=== PATIENT | female | born 1960 | race Caucasian/White ===

== ENCOUNTER 2018-12-16 11:40 | Inpatient (IN) | payer MEDICARE, MEDICAID, SELFPAY ==
[2018-12-16] VITALS (12 sets, daily range): BP systolic 85–107; BP diastolic 51–74; PULSE 76–110; RESP 16–18; TEMP 36.4–37.3; O2SAT 95–99; BMI 21.2
--- NOTE | 2018-12-16 08:30 | HP.PCM_ITS ---
Problem List (1) Mantle cell lymphoma Status: Acute Qualifiers: Lymphoma site: multiple regions Qualified Code(s): C83.18 - Mantle cell lymphoma, lymph nodes of multiple sites (2) Anemia Status: Acute Qualifiers: Other causes of anemia: antineoplastic chemotherapy History of Present Illness Date of Admission: 12/16/18 Chief Complaint: Induction chemotherapy - cycle #2 R- HiDAC The patient is a 58 year old F history of depression fibromyalgia who presented with generalized adenopathy, and weight loss with increased fatigue earlier this summer. She had a bilateral mammogram in August 2018 which showed suspicious lesion in her breast and axillary adenopathy. He had a biopsy of the right axillary lymph node on 10/30/2018 which show mantle cell lymphoma. Subsequent staging evaluation with PET scan and bone marrow biopsy showed diffuse disease involving the bone marrow as well. She had her first cycle induction chemotherapy 3 weeks ago with R-CHOP. Patient complained of several days of nausea vomiting with increased alopecia but no chest pain or shortness of breath. She denied cough, stomatitis or diarrhea. No increased neuropathy. She denied any fever chills night sweats at this time. She has chronic arthritic pain of her hip along with fibromyalgia pain throughout. She also had a EGD evaluation prior to chemotherapy which showed no significant pathology. Past Medical History Allergies morphine Allergy (Verified 12/16/18 08:21) Hives Home Medications: Ambulatory Orders Medication Instructions Recorded Allopurinol 300 mg PO DAILY 12/16/18 Buspirone HCl 7.5 mg PO BID 12/16/18 Duloxetine Hcl [Cymbalta] 60 mg PO DAILY 12/16/18 Oxycodone HCl/Acetaminophen 1 tab PO Q4H PRN PRN 12/16/18 [Percocet 5/325] Topiramate [Topamax] 100 mg PO BID 12/16/18 proMETHazine tablet [Phenergan 50 mg PO Q6H PRN PRN 12/16/18 tablet] traZODone [Desyrel] 100 mg PO QHS 12/16/18 Surgical History: no surgical history Psychiatric History: No pertinent psych hx [employer]ER[employer]ER History: No pertinent [employer]ERGROUND [employer]IT INST[employer]ER history Lives: Spouse/ Significant Other Smoking Status: Current every day smoker Alcohol: None Drugs: None Review of Systems Constitutional: Reports: Weight Change Musculoskeletal: Reports: Joint stiffness Skin: Reports: Dryness Psychiatric: Reports: Depression Hematologic/ Lymphatic: Reports: Adenopathy, Anemia VTE Information - Inpt Only VTE Present on Admission: No VTE Pharm Prophylaxis ordered?: Yes Patient Problems: Active and Suspected Problems Mantle cell lymphoma (Acute) Anemia (Acute) - Physical Exam Vitals/I&O's: Weight: 108 lb 11.006 oz Body Mass Index (BMI) 21.2 General: Alert, Oriented x3, Cooperative, No apparent distress HEENT: Atraumatic, PERRLA, EOMI, Normocephalic Oral: Moist Mucosa, No Gingival or Mucosal Lesions/ Ulcerations Neck: Supple, Trachea Midline, Thyroid Normal Size and Texture Lungs: Clear to auscultation, Normal air movement, No rhonchi, No wheeze, No rales Cardiovascular: Regular rate, Regular Rhythm, Normal S1, Normal S2, No murmurs Abdomen: Bowel Sounds Present, Soft, Non Tender, Non-Distended, No Hepato- splenomegaly Extremities: No clubbing, No cyanosis, No edema Skin: No rashes Musculoskeletal: No Tenderness to Palpation of Joints or Extremities Lymphatic: Cervical Adenopathy, Inguinal Adenopathy, Supraclavicular Adenopathy, - - Axillary adenopathy Neurological: Cranial nerves II-XII grossly intact, Deep Tendon Reflexes 2+/4 and Symmetrical, Neuro grossly intact, Motor Exam 5/5 strength throughout Psych/Mental Status: Normal Affect Current Medications Acetaminophen (Tylenol) 650 mg PO Q6H PRN PRN PRN Reason: Pain or Fever Enoxaparin Sodium (Lovenox) 40 mg SC DAILY ADITHYA Zolpidem Tartrate (Ambien (Generic)) 5 mg PO QHS PRN PRN PRN Reason: INSOMNIA Assessment/Plan All Active Problems Mantle cell lymphoma (Acute) Anemia (Acute) IMPRESSION: 58-year-old female with newly diagnosed stage IVb mantle cell lymphoma; poor risk feature with high risk IPI index (4) -No evidence of tumor lysis with first cycle of chemotherapy. -Patient is eligible for autologous bone marrow transplant after completing induction chemotherapy. PLAN: -Proceed with cycle 2 of NORDIC regimen: [id number] cytarabine today & tomorrow -Regular diet -Allopurinol 300mg once daily and start hydration NSS IV at 125cc/hr -Monitor BMP, phosphorus & uric acid daily -Strict I / O and weight daily. -Dietary consult -Dexamethasone eyedrops 4 x daily -Discharge home after chemotherapy on if stable, and return for Neulasta injection on Saturday as an outpatient. -Repeat CT scan chest abdomen pelvis after her third cycle of chemotherapy. -Indications and risks of chemotherapy discussed with patient and she agreed to proceed with treatment today. cc: Dr. Margarita Yarbrough, Dr. Sabrian Bee Code Visit Inpatient E&M: 39141 Init Hosp L3
[2018-12-16] MEDS: 0.9% Normal Saline 1,000 ML 125 ML IV ×2 (09:31→17:32)
[2018-12-16 09:37] LABS: Anion Gap 8 (5-15); BUN 14 mg/dL (7-18); BUN/Creat Ratio 15.1 RATIO (10-20); Calcium,Total 8.6 mg/dL (8.5-10.1); Chloride 107 mmol/L (98-107); Creatinine, Serum 0.93 mg/dL (0.55-1.02); EST Glomerular Filtration Rate 66 mL/min (>60); Est Glom Filt Rate - Afr Amer 80 mL/min (>60); Estimated Creatinine Clearance 46.78 ml/min; Glucose 121 mg/dL (74-106); Phosphorus 3.8 mg/dL (2.5-4.9); Potassium 3.7 mmol/L (3.5-5.1); Sodium Level 139 mmol/L (136-145); Uric Acid 2.2 mg/dL (2.6-6.0)
[2018-12-16] MEDS: DiphenhydrAMINE 50 MG/ML Syringe IV (09:40)
[2018-12-16] MEDS: Acetaminophen 325 MG Tablet 650 MG PO (09:40)
[2018-12-16] MEDS: 0.9% Saline Lock 10 ML Syringe IV ×2 (09:41→17:31)
--- NOTE | 2018-12-16 09:45 | NURSING ---
notified Infusion Center that pre meds were given. Infusion center states they will be over in half an hour to start chemo.
--- NOTE | 2018-12-16 10:28 | NURSING ---
verified chemo medication, Rituxan, with Mariya Sutton RN.
[2018-12-16] MEDS: Ondansetron 8 MG Tablet PO (11:58)
[2018-12-16] MEDS: busPIRone 5 MG Tablet 7.5 MG PO ×2 (14:58→22:10)
[2018-12-16] MEDS: Pantoprazole Sodium 40 MG Tablet PO (14:58)
[2018-12-16] MEDS: Topiramate 100 MG Tablet PO ×2 (14:58→22:11)
[2018-12-16] MEDS: Enoxaparin 40 MG/0.4 ML Syringe SC (14:59)
[2018-12-16] MEDS: DULoxetine Hcl 60 MG Capsule PO (14:59)
[2018-12-16] MEDS: Acyclovir 200 MG Capsule 400 MG PO ×2 (14:59→22:10)
[2018-12-16 16:28] LABS: Anion Gap 5 (5-15); BUN 15 mg/dL (7-18); BUN/Creat Ratio 16.6 RATIO (10-20); Calcium,Total 8.1 mg/dL (8.5-10.1); Chloride 112 mmol/L (98-107); EST Glomerular Filtration Rate 68 mL/min (>60); Est Glom Filt Rate - Afr Amer 82 mL/min (>60); Estimated Creatinine Clearance 48.34 ml/min; Glucose 126 mg/dL (74-106); Potassium 3.7 mmol/L (3.5-5.1); Sodium Level 144 mmol/L (136-145)
[2018-12-16] MEDS: oxyCODONE 5 MG Tablet PO ×2 (18:50→23:22)
--- NOTE | 2018-12-16 20:20 | NURSING ---
Chemotherapy checked by 2 nurses, by Sheron RUBIO and myself, Lana Winchester
--- NOTE | 2018-12-16 20:33 | NURSING ---
Vital signs checked after cytarabine running 30 minutes. BP107/70 pulse 96,Denies dizziness, lightheadedness or any c/o's.
[2018-12-16] MEDS: traZODone 50 MG Tablet PO (23:22)
[2018-12-17] VITALS (10 sets, daily range): BP systolic 86–102; BP diastolic 52–70; PULSE 75–95; RESP 16–18; TEMP 36.7–37.1; O2SAT 94–98
[2018-12-17] MEDS: 0.9% Normal Saline 1,000 ML 125 ML IV (01:34)
[2018-12-17] MEDS: 0.9% Saline Lock 10 ML Syringe IV ×2 (04:23→06:38)
[2018-12-17 04:45] LABS: Anion Gap 5 (5-15); BUN 19 mg/dL (7-18); BUN/Creat Ratio 25.5 RATIO (10-20); Calcium,Total 8.1 mg/dL (8.5-10.1); Chloride 113 mmol/L (98-107); Creatinine, Serum 0.74 mg/dL (0.55-1.02); EST Glomerular Filtration Rate 85 mL/min (>60); Est Glom Filt Rate - Afr Amer 102 mL/min (>60); Glucose 140 mg/dL (74-106); Phosphorus 3.2 mg/dL (2.5-4.9); Potassium 4.1 mmol/L (3.5-5.1); Sodium Level 142 mmol/L (136-145); Uric Acid 2.1 mg/dL (2.6-6.0)
[2018-12-17] MEDS: oxyCODONE 5 MG Tablet PO ×3 (06:37→20:27)
[2018-12-17] MEDS: proMETHazine 25 MG/ML Syringe IV ×2 (06:38→13:26)
[2018-12-17] MEDS: DULoxetine Hcl 60 MG Capsule PO (08:20)
[2018-12-17] MEDS: busPIRone 5 MG Tablet 7.5 MG PO ×2 (08:20→23:25)
[2018-12-17] MEDS: Allopurinol 300 MG Tablet PO (08:20)
[2018-12-17] MEDS: Pantoprazole Sodium 40 MG Tablet PO (08:21)
[2018-12-17] MEDS: Enoxaparin 40 MG/0.4 ML Syringe SC (08:21)
[2018-12-17] MEDS: Acyclovir 200 MG Capsule 400 MG PO ×2 (08:22→23:25)
[2018-12-17] MEDS: Topiramate 100 MG Tablet PO ×2 (08:22→23:25)
--- NOTE | 2018-12-17 08:55 | NURSING ---
IV Cytosar, Soniya-C, verified with Taylor Alejandra RN prior to infusion.
--- NOTE | 2018-12-17 09:03 | NURSING ---
December 17 at 0850am. Chemotherapy, cytosar A 2250mg IV over 3hours was checked by Mariya Mathew RN and Taylor FIGUEREDO,RAMIRO. Dose, route and corect line was verified. Patient stated name and birthdate which was verified and bracelet and medication was scanned. Medication was begun after verifying correct patient.
[2018-12-17] MEDS: 0.9% Normal Saline 1,000 ML 75 ML IV ×2 (10:45→23:25)
--- NOTE | 2018-12-17 11:13 | CASEMGMT ---
This RN CM to room to complete CM assessment and pt is sleeping without distress at this time. Will attempt again later. SStaten RN CM
--- NOTE | 2018-12-17 13:55 | CASEMGMT ---
RAMIRO PALMA assessment: Face to Face with patient for initial transition planning/care coordination assessment. RAMIRO PALMA introduced self and role at [facility], pt voices understanding and consents to assessment at this time. Pt is sitting up in bed in no distress at this time. Pt is A/Ox4 at this time and answers all questions appropriately at this time. Care providers, pharmacy, and demographics verified. PCP: Cristal Specialists: Linnea Parada Pharmacy: [facility] Insurance: MCR A/B Prescription Benefit: MCR D Living Will/HPOA: Pt states has paperwork for LW/HPOA and plans to fill it out while here. Pt is aware that SW is available to assist with AD paperwork, voices understanding. Silke SW aware at this time, voices understanding. LNOK: Manpreet eBatty, Living Arrangements: Pt states lives with in 1 story apt attached to [place] and states no concerns at home at this time. Pt states is independent with ADL's. Transportation: Pt states she or drives and states no transportation concerns at this time. DME/HHC: Pt states has grab bars in bathroom and states no further DME or need for any at this time. Pt states no hx of HHC or SNF in the past. Pt states no concerns with going home at time of discharge. Pt states is retired. Pt states was down to about a 1/2pack cigarettes daily but plans to quit at this time. Pt states does not drink ETOH. Pt states no further questions/concerns at this time. CM to follow for any further discharge planning/needs. Advised pt to ask for CM if any further questions/concerns/needs arise, voices understanding. Pt Goal: Home Plan: Home SStaten RAMIRO PALMA
--- NOTE | 2018-12-17 14:14 | PCM.PROGNOTE ---
Patient Problems: Active and Suspected Problems Mantle cell lymphoma (Acute) Anemia (Acute) Subjective: Tolerating treatment well. No significant nausea. Pheba a little queasy this morning but that was relieved after taking anti-emetic. No pain currently. - Physical Exam Vitals/I&O's: Vital Signs Temp Pulse Resp BP Pulse Ox 98.0 F 75 16 102/61 94 12/17/18 10:10 12/17/18 10:10 12/17/18 10:10 12/17/18 10:10 12/17/18 10:10 Oxygen Delivery Method Room Air Weight: 52.9 kg Body Mass Index (BMI) 21.2 Intake and Output for Last 24 Hours 12/15/18 12/16/18 12/17/18 23:59 23:59 23:59 Intake Total 2313.58 / 2313.58 1757.92 / 1757.92 Output Total 1200 / 1200 1300 / 1300 Balance 1113.58 / 1113.58 457.92 / 457.92 General: Alert Oral: Moist Mucosa Lungs: Clear to auscultation Cardiovascular: Regular Rhythm Lymphatic: No Cervical, Supraclavicular, or Inguinal Adenopathy Laboratory Results 12/16/18 16:00: Sodium 144, Potassium 3.7, Chloride 112 H, Carbon Dioxide 27.0, Anion Gap 5, BUN 15, Creatinine 0.90, Estim Creat Clear Calc 48.34, Est GFR (MDRD) Af Amer 82, Est GFR (MDRD) Non-Af 68, BUN/Creatinine Ratio 16.6, Glucose 126 H, Calcium 8.1 L 12/17/18 04:24: Sodium 142, Potassium 4.1, Chloride 113 H, Carbon Dioxide 24.0, Anion Gap 5, BUN 19 H, Creatinine 0.74, Estim Creat Clear Calc 58.80, Est GFR (MDRD) Af Amer 102, Est GFR (MDRD) Non-Af 85, BUN/Creatinine Ratio 25.5 H, Glucose 140 H, Uric Acid 2.1 L, Calcium 8.1 L, Phosphorus 3.2 Current Medications Acetaminophen (Tylenol) 650 mg PO Q6H PRN PRN PRN Reason: Pain or Fever Acyclovir (Zovirax) 400 mg PO BID ADITHYA Last Admin: 12/17/18 08:22 Dose: 400 mg Documented by: Albuterol Sulfate (Ventolin Aerosols) 2.5 mg INHALATION Q4H PRN Allopurinol (Zyloprim) 300 mg PO DAILY@0800 [facility] Last Admin: 12/17/18 08:20 Dose: 300 mg Documented by: Buspirone HCl (Buspar) 7.5 mg PO BID [facility] Last Admin: 12/17/18 08:20 Dose: 7.5 mg Documented by: Duloxetine HCl (Cymbalta) 60 mg PO DAILY [facility] Last Admin: 12/17/18 08:20 Dose: 60 mg Documented by: Enoxaparin Sodium (Lovenox) 40 mg SC DAILY [facility] Last Admin: 12/17/18 08:21 Dose: 40 mg Documented by: Heparin Sodium (Beef Lung) () 50 units IV UD PRN PRN Reason: R Port Heparin Flush Sodium Chloride () 1,000 mls @ 75 mls/hr IV .[id number] [facility] Last Admin: 12/17/18 10:45 Dose: 75 mls/hr Documented by: Sodium Chloride () 500 mls @ 15 mls/hr IV PRN PRN PRN Reason: Blood Transfusion Sodium Chloride () 250 mls @ 15 mls/hr IV .[id number] PRN PRN Reason: Saline Flush Cytarabine 2,250 mg/ Sodium (Chloride) 272.5 mls @ 90.833 mls/hr IV Q12H [facility] Stop: 12/18/18 10:59 Last Admin: 12/17/18 08:56 Dose: 90.833 mls/hr Documented by: Dexamethasone Sodium Phosphate 10 mg/ Ondansetron HCl 8 mg/Sodium Chloride 56.5 mls @ 226 mls/hr IV X1 ONE Stop: 12/17/18 19:44 Nutritional Formula (Lactose Free) (Ensure Enlive) 120 ml PO 4X/DAY [facility] Last Admin: 12/17/18 11:17 Dose: Not Given Documented by: Ondansetron HCl (Zofran) 8 mg PO Q8H PRN PRN Reason: NAUSEA/VOMITING Last Admin: 12/16/18 11:58 Dose: 8 mg Documented by: Oxycodone HCl (Oxyir) 5 mg PO Q4H PRN PRN PRN Reason: Pain Score 6-10/10 Last Admin: 12/17/18 13:25 Dose: 5 mg Documented by: Pantoprazole Sodium (Protonix) 40 mg PO DAILY [facility] Last Admin: 12/17/18 08:21 Dose: 40 mg Documented by: Promethazine HCl (Phenergan) 25 mg IV Q6H PRN PRN Reason: NAUSEA/VOMITING Last Admin: 12/17/18 13:26 Dose: 25 mg Documented by: Sodium Chloride () 10 - 40 ml IV UD PRN PRN Reason: R Port Saline Flush Last Admin: 12/17/18 06:38 Dose: 20 ml Documented by: Sodium Chloride (0.9% Nacl (Sterile) Posiflush) 10 - 40 ml IV UD PRN PRN Reason: Port access or dressing change Sodium Chloride () 5 - 15 ml IV UD PRN PRN Reason: SALINE FLUSH Topiramate (Topamax) 100 mg PO BID [facility] Last Admin: 12/17/18 08:22 Dose: 100 mg Documented by: Trazodone HCl (Desyrel) 50 mg PO QHS PRN PRN Reason: SLEEP Last Admin: 12/16/18 23:22 Dose: 50 mg Documented by: Zolpidem Tartrate (Ambien (Generic)) 5 mg PO QHS PRN PRN PRN Reason: INSOMNIA Medical Necessity - Tobacco Use Smoking Status: Current every day smoker Assessment/Plan All Active Problems Mantle cell lymphoma (Acute) Anemia (Acute) Tolerating treatment very well. Plan: -Continue chemotherapy as ordered. -Anticipate discharge tomorrow.
[2018-12-17] MEDS: Ondansetron 8 MG Tablet PO (17:04)
[2018-12-17] MEDS: traZODone 50 MG Tablet PO (23:28)
[2018-12-18 02:45] VITALS: BP 95/73; PULSE 82; RESP 16; TEMP 36.4; O2SAT 98
[2018-12-18 03:00] VITALS: PULSE 77
[2018-12-18] MEDS: oxyCODONE 5 MG Tablet PO ×2 (03:03→09:33)
[2018-12-18] MEDS: proMETHazine 25 MG/ML Syringe IV (05:29)
[2018-12-18] MEDS: 0.9% Saline Lock 10 ML Syringe IV ×2 (05:30→11:53)
[2018-12-18 06:23] LABS: Anion Gap 7 (5-15); BUN 21 mg/dL (7-18); BUN/Creat Ratio 26.3 RATIO (10-20); Chloride 113 mmol/L (98-107); EST Glomerular Filtration Rate 78 mL/min (>60); Est Glom Filt Rate - Afr Amer 95 mL/min (>60); Estimated Creatinine Clearance 54.39 ml/min; Glucose 141 mg/dL (74-106); Phosphorus 3.8 mg/dL (2.5-4.9); Potassium 3.7 mmol/L (3.5-5.1); Sodium Level 142 mmol/L (136-145); Uric Acid 2.8 mg/dL (2.6-6.0)
[2018-12-18 07:19] VITALS: PULSE 72
--- NOTE | 2018-12-18 08:02 | DCINST_ITS ---
- Discharge Diagnoses Current Active Problems: Current Active and Chronic Problems Mantle cell lymphoma (Acute) Anemia (Acute) Reason(s) for Visit for Discharge Instructions: Chemotherapy You will use the following diet at home:: No restrictions Your food should be the consistency of: Regular Your liquids should be the consistency of: Regular/Thin Discharge Activity: Return to Normal Activity Allergies/Adverse Reactions: Allergies morphine Allergy (Verified 12/16/18 08:21) Hives Medications to take at Discharge Allopurinol 300 mg PO DAILY 12/16/18 Buspirone HCl 7.5 mg PO BID 12/16/18 Duloxetine Hcl [Cymbalta] 60 mg PO DAILY 12/16/18 Oxycodone HCl/Acetaminophen [Percocet 5-325] 1 tab PO Q4H PRN PRN 12/16/18 Topiramate [Topamax] 100 mg PO BID 12/16/18 proMETHazine tablet [Phenergan tablet] 50 mg PO Q6H PRN PRN 12/16/18 traZODone [Desyrel] 100 mg PO QHS 12/16/18 Primary Care Physician: Juany Bee MD [Primary Care Provider] - Test Results: Test results from this visit will be discussed in further detail at your follow- up appointment, if applicable.
--- NOTE | 2018-12-18 08:04 | DS.PCM_ITS ---
Discharge Date and Diagnosis - Problem List Patient Problems: Active and Suspected Problems Mantle cell lymphoma (Acute) Anemia (Acute) Date of Admission: 12/16/18 Date of Discharge: 12/18/18 - Primary Discharge Diagnosis Active and Suspected Problems Mantle cell lymphoma (Acute) Anemia (Acute) Hospital Course and Treatment Operations: None Procedures: None Summary of Care Provided: The patient is a 58 year old F admitted for a cycle of chemotherapy for mantle cell lymphoma. Patient received course of chemotherapy without acute side effect. Patient Problems: Active and Suspected Problems Mantle cell lymphoma (Acute) Anemia (Acute) - Physical Exam Vitals/I&O's: Vital Signs Temp Pulse Resp BP Pulse Ox 97.5 F L 72 16 95/73 98 12/18/18 02:45 12/18/18 07:19 12/18/18 02:45 12/18/18 02:45 12/18/18 02:45 Oxygen Delivery Method Room Air Weight: 53.5 kg Body Mass Index (BMI) 21.2 Intake and Output for Last 24 Hours 12/16/18 12/17/18 12/18/18 23:59 23:59 23:59 Intake Total 2313.58 / 2313.58 3783.17 / 3783.17 Output Total 1200 / 1200 2700 / 2700 1000 / 1000 Balance 1113.58 / 1113.58 1083.17 / 1083.17 -1000 / -1000 General: Alert Oral: Moist Mucosa Lungs: Clear to auscultation Cardiovascular: Regular Rhythm Lymphatic: No Cervical, Supraclavicular, or Inguinal Adenopathy Laboratory Results 12/18/18 05:20: Sodium 142, Potassium 3.7, Chloride 113 H, Carbon Dioxide 22.0, Anion Gap 7, BUN 21 H, Creatinine 0.80, Estim Creat Clear Calc 54.39, Est GFR (MDRD) Af Amer 95, Est GFR (MDRD) Non-Af 78, BUN/Creatinine Ratio 26.3 H, Glucose 141 H, Uric Acid 2.8, Calcium 8.0 L, Phosphorus 3.8 Current Medications Acetaminophen (Tylenol) 650 mg PO Q6H PRN PRN PRN Reason: Pain or Fever Acyclovir (Zovirax) 400 mg PO BID ADITHYA Last Admin: 12/17/18 23:25 Dose: 400 mg Documented by: Albuterol Sulfate (Ventolin Aerosols) 2.5 mg INHALATION Q4H PRN Allopurinol (Zyloprim) 300 mg PO DAILY@0800 [facility] Last Admin: 12/17/18 08:20 Dose: 300 mg Documented by: Buspirone HCl (Buspar) 7.5 mg PO BID [facility] Last Admin: 12/17/18 23:25 Dose: 7.5 mg Documented by: Duloxetine HCl (Cymbalta) 60 mg PO DAILY [facility] Last Admin: 12/17/18 08:20 Dose: 60 mg Documented by: Enoxaparin Sodium (Lovenox) 40 mg SC DAILY [facility] Last Admin: 12/17/18 08:21 Dose: 40 mg Documented by: Heparin Sodium (Beef Lung) () 50 units IV UD PRN PRN Reason: R Port Heparin Flush Sodium Chloride () 1,000 mls @ 75 mls/hr IV .[id number] [facility] Last Infusion: 12/17/18 23:59 Dose: 75 mls/hr Documented by: Sodium Chloride () 500 mls @ 15 mls/hr IV PRN PRN PRN Reason: Blood Transfusion Sodium Chloride () 250 mls @ 15 mls/hr IV .[id number] PRN PRN Reason: Saline Flush Cytarabine 2,250 mg/ Sodium (Chloride) 272.5 mls @ 90.833 mls/hr IV Q12H [facility] Stop: 12/18/18 10:59 Last Infusion: 12/17/18 23:54 Dose: Infused Documented by: Nutritional Formula (Lactose Free) (Ensure Enlive) 120 ml PO 4X/DAY [facility] Last Admin: 12/17/18 23:25 Dose: 120 ml Documented by: Ondansetron HCl (Zofran) 8 mg PO Q8H PRN PRN Reason: NAUSEA/VOMITING Last Admin: 12/17/18 17:04 Dose: 8 mg Documented by: Oxycodone HCl (Oxyir) 5 mg PO Q4H PRN PRN PRN Reason: Pain Score 6-10/10 Last Admin: 12/18/18 03:03 Dose: 5 mg Documented by: Pantoprazole Sodium (Protonix) 40 mg PO DAILY [facility] Last Admin: 12/17/18 08:21 Dose: 40 mg Documented by: Promethazine HCl (Phenergan) 25 mg IV Q6H PRN PRN Reason: NAUSEA/VOMITING Last Admin: 12/18/18 05:29 Dose: 25 mg Documented by: Sodium Chloride () 10 - 40 ml IV UD PRN PRN Reason: R Port Saline Flush Last Admin: 12/18/18 05:30 Dose: 30 ml Documented by: Sodium Chloride (0.9% Nacl (Sterile) Posiflush) 10 - 40 ml IV UD PRN PRN Reason: Port access or dressing change Sodium Chloride () 5 - 15 ml IV UD PRN PRN Reason: SALINE FLUSH Topiramate (Topamax) 100 mg PO BID ADITHYA Last Admin: 12/17/18 23:25 Dose: 100 mg Documented by: Trazodone HCl (Desyrel) 50 mg PO QHS PRN PRN Reason: SLEEP Last Admin: 12/17/18 23:28 Dose: 50 mg Documented by: Zolpidem Tartrate (Ambien (Generic)) 5 mg PO QHS PRN PRN PRN Reason: INSOMNIA Discharge Activity: Return to Normal Activity Home Medications: Medications to take at Discharge Allopurinol 300 mg PO DAILY 12/16/18 Buspirone HCl 7.5 mg PO BID 12/16/18 Duloxetine Hcl [Cymbalta] 60 mg PO DAILY 12/16/18 Oxycodone HCl/Acetaminophen [Percocet 5-325] 1 tab PO Q4H PRN PRN 12/16/18 Topiramate [Topamax] 100 mg PO BID 12/16/18 proMETHazine tablet [Phenergan tablet] 50 mg PO Q6H PRN PRN 12/16/18 traZODone [Desyrel] 100 mg PO QHS 12/16/18 Primary Care Physician: Juany Bee MD [Primary Care Provider] - Medical Necessity - Tobacco Use Smoking Status: Current every day smoker Meaningful Use Info Meaningful Use Diagnoses (Choose all that apply): None applicable
[2018-12-18 08:40] VITALS: BP 89/58; PULSE 72; RESP 16; TEMP 36.8; O2SAT 96
--- NOTE | 2018-12-18 09:19 | PHA.DC.MR ---
Pharmacy Service has performed discharge medication reconciliation for this patient. Home Medications Allopurinol 300 mg PO DAILY 12/16/18 Buspirone HCl 7.5 mg PO BID 12/16/18 Duloxetine Hcl [Cymbalta] 60 mg PO DAILY 12/16/18 Oxycodone HCl/Acetaminophen [Percocet 5-325] 1 tab PO Q4H PRN PRN 12/16/18 Topiramate [Topamax] 100 mg PO BID 12/16/18 proMETHazine tablet [Phenergan tablet] 50 mg PO Q6H PRN PRN 12/16/18 traZODone [Desyrel] 100 mg PO QHS 12/16/18 The patient's discharge medication list was reviewed for discrepancies and discrepancies were resolved.
[2018-12-18] MEDS: DULoxetine Hcl 60 MG Capsule PO (09:33)
[2018-12-18] MEDS: Acyclovir 200 MG Capsule 400 MG PO (09:34)
[2018-12-18] MEDS: busPIRone 5 MG Tablet 7.5 MG PO (09:34)
[2018-12-18] MEDS: Allopurinol 300 MG Tablet PO (09:34)
[2018-12-18] MEDS: Pantoprazole Sodium 40 MG Tablet PO (09:38)
[2018-12-18] MEDS: Topiramate 100 MG Tablet PO (09:38)
[2018-12-18] MEDS: Enoxaparin 40 MG/0.4 ML Syringe SC (09:38)
[2018-12-18 09:42] VITALS: BP 100/67; PULSE 74; RESP 18; TEMP 36.8; O2SAT 96
== END 2018-12-18 12:10 | disposition home or self-care (01) | DRG 847 ==
PROVIDERS: Admitting Provider Internal Medicine Hematology & Oncology; Family Provider Internal Medicine; PCP Internal Medicine; Referring Provider Internal Medicine Hematology & Oncology; Visit Provider Internal Medicine Hematology & Oncology
DX: Z51.11 Encounter for antineoplastic chemotherapy (principal); C83.10 Mantle cell lymphoma, unspecified site; M79.7 Fibromyalgia; D64.9 Anemia, unspecified
CPT/HCPCS: 80048; 84100; 84550; 97802; 99406; J7030; J7050; J9312; A4216; J2405; J3490; J9100

== ENCOUNTER 2019-01-27 15:30 | Inpatient (IN) | payer MEDICARE, MEDICAID, SELFPAY ==
[2018-12-16 08:17] VITALS: BMI 21.2
--- NOTE | 2019-01-27 10:12 | PCM.HP.BLA ---
Problem List (1) Mantle cell lymphoma Status: Acute Qualifiers: History and Physical Date of Admission: 01/27/19 Diagnosis: 1) Mantle cell lymphoma. ? HPI:?The patient is a 58-year-old female with a past medical history significant for fibromyalgia?and depression. ? Presented?with bilateral axillary adenopathy. Patient had?not been feeling well for the last 3 months prior to presentation?with progressive fatigue and weight loss. She had?recurrent colds and sinus infection and had?felt cervical adenopathy since earlier this year. They were?not painful and the lymph node did not?wax and wane in size initially. ? She also has a?family history of breast cancer her mother from metastatic breast cancer as well as Sister with breast cancer. She had bilateral mammogram on September 17, 2018 which showed?suspicious lesions?in the breasts.?A?breast breast?biopsy was recommended.? ? She also have MRI scan of her breasts.? ? US?guided needle biopsy of the right axilla or right breast mass on?10/30/2018.? ? Pathology: Right breast axilla, needle biopsy - Mantle cell lymphoma (see comment). COMMENT The histologic sections show small core fragments of fibrofatty tissue and scant fragments of lymphoid tissue. The lymphoid fragments are composed predominantly of small lymphocytes with somewhat irregular, angulated nuclei. Scattered large cells and scattered histiocytes are also present. Flow cytometric studies show a CD5 positive B-cell population with monotypic kappa light chain expression. Immunohistochemical stains were also performed to further characterize the atypical B-cells. Immunostains?show numerous CD20 positive cells that co-express CD5, BCL-2 and cyclin-D1. Scattered CD3 positive cells are also present. The B-cells are negative for CD10 and BCL-6. A CD21 stain is negative. A Ki-67 stain is positive in approximately 40% of nuclei. Together these findings demonstrate involvement by mantle cell lymphoma. ? Bone marrow biopsy 11/12/2018. BONE MARROW, CORE BIOPSY, ASPIRATE SMEAR, PERIPHERAL BLOOD: - MORPHOLOGIC FINDINGS CONSISTENT WITH EXTENSIVE INVOLVEMENT BY MANTLE CELL LYMPHOMA, BLASTOID VARIANT. - SEE COMMENT. ? EGD 11/19/2018. Patient was identified as having a normal mucosa of the duodenum and jejunum. Changes consistent with gastritis characterized by scattered mild inflammation with erosions, erythema and friability was found in the entire examined mucosa of the stomach. Biopsies were taken. Changes from nonsevere reflux esophagitis were also observed and biopsied. Biopsies were taken from the normal-appearing jejunal mucosa. ? Pathology: ? ?FINAL DIAGNOSIS 1. Jejunum, biopsy (A) - No significant diagnostic abnormality. - Morphologic features of celiac disease are not seen. - No morphologic evidence of a lymphoproliferative disorder. 2. Gastric antrum, biopsy (B) - Gastric antral mucosa with features of healing erosion and reactive gastropathy. - No morphologic evidence of H. pylori organisms or a lymphoproliferative disorder. 3. Distal esophagus, biopsy (C) - Lymphocytic esophagitis pattern of injury. - See comment. ? ? PET 11/11/2018: IMPRESSION: Extensive lymphoma with splenic and marrow involvement. ?1. ?NECK: Extensive hypermetabolic cervical lymphadenopathy. ?2. ?CHEST: Small mildly hypermetabolic right lung nodule, suspicious for a small malignant nodule. Extensive hypermetabolic mediastinal, hilar and axillary lymphadenopathy. ?3. ?ABDOMEN/PELVIS: Extensive hypermetabolic abdomen and pelvic lymphadenopathy. Splenomegaly. ?Diffuse splenic hypermetabolism, compatible with splenic involvement. Heterogeneous uptake with focus of increased uptake/hypermetabolism in the liver. ?Metastatic involvement cannot be entirely excluded. ?4. ?EXTREMITIES/SKELETON: Extensive skeletal metabolism compatible with marrow involvement. ? Current therapy: 1) R-CHOP alternating with Soniya-C (nordic regimen). ? Presents for ongoing oncologic management. ? Interim history:? Did well with cycle #3. ? Required RBC transfusion. ? Was still having significant pain across breasts and into both axillae. Has been going on for several weeks. Gabapentin did not help. ? ROS: Constitutional: Denies episodes of fever and night sweats. Normal appetite. Neuro: ?Denies LOUISE, vertigo, dizziness and imbalance. HEENT: No recent change in voice, vision or hearing. Resp: Denies cough, wheeze and hemoptysis. Denies shortness of breath at rest. Denies STAHL. CVS: Denies exertional chest pain, PND, orthopnea and LE edema. GI: Denies dysgeusia. Denies symptoms of stomatitis. Denies dysphagia and odynophagia. Denies reflux, n/v, change in bowel habits and abdominal pain. : Denies dysuria or gross hematuria. No symptoms of bladder outlet obstruction. Endo: Denies polyuria and polydipsia. Musculoskeletal:?See above. Derm: Denies rash. Denies jaundice and diffuse pruritis. Heme: Denies unusual bleeding and unexplained bruising. Psych: Normal mood. ? PHYSICAL EXAM (from OV 01/23/2019) Well appearing and in no acute distress. EYES: Sclerae are anicteric bilaterally. ENT: Oral mucosa is unremarkable. There is no sign of thrush or mucositis. ? NECK: Supple. LYMPHATIC:?All peripheral adenopathy resolved. RESPIRATORY: Inspiratory breath sounds are of normal intensity in all rodrigues. No rales, wheezes or rhonchi. CARDIOVASCULAR: Rhythm is regular. Normal intensity S1/S2. ABDOMEN: The abdomen is nondistended. Extremities: No swelling or edema. ? SKIN: No jaundice or rash. No petechiae. ? 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 No focal motor weakness. MUSCULOSKELETAL: No muscle wasting. ASSESSMENT/PLAN: (C83.18) Mantle cell lymphoma of lymph nodes of multiple regions (HCC) ?(primary encounter diagnosis) Stage IVB Assessment: -KPS is 90%. -MIPI score is 4; Ki67 40%. -No evidence of tumor lysis?with?first?and subsequent?courses?of chemotherapy. -She is tolerating chemotherapy symptomatically very well. -Complete response by exam. Plan: -Admission for cycle #4 (Soniya-c/rituximab). -Repeat CT scan of chest abdomen pelvis and PET after fourth cycle chemotherapy. ? (M79.629) Pain in axilla, unspecified laterality Assessment: -Pain not characteristic of neuropathic pain from chemotherapy. -Lymphoma in remission. Plan: -Under the care of PCP.
[2019-01-27 14:21] VITALS: BP 122/77; PULSE 84; RESP 18; TEMP 36.8; O2SAT 99
[2019-01-27 14:33] VITALS: BMI 24.3
[2019-01-27 14:44] VITALS: BMI 24.4
[2019-01-27] MEDS: Acetaminophen 325 MG Tablet 650 MG PO (14:54)
[2019-01-27] MEDS: Acetaminophen/Butalbital/Caffe 1 Tablet PO ×2 (14:54→22:56)
[2019-01-27] MEDS: 0.9% Normal Saline 1,000 ML 125 ML IV (14:54)
[2019-01-27] MEDS: DiphenhydrAMINE 50 MG/ML Syringe IV (14:54)
[2019-01-27] MEDS: 0.9% Saline Lock 10 ML Syringe IV (14:55)
[2019-01-27 16:03] LABS: Anion Gap 4 (5-15); BUN 9 mg/dL (7-18); BUN/Creat Ratio 13.4 RATIO (10-20); Calcium,Total 8.6 mg/dL (8.5-10.1); Chloride 115 mmol/L (98-107); Creatinine, Serum 0.67 mg/dL (0.55-1.02); EST Glomerular Filtration Rate 95 mL/min (>60); Est Glom Filt Rate - Afr Amer 115 mL/min (>60); Estimated Creatinine Clearance 64.94 ml/min; Glucose 86 mg/dL (74-106); LDH 164 U/L (84-246); Phosphorus 3.3 mg/dL (2.5-4.9); Potassium 3.6 mmol/L (3.5-5.1); Sodium Level 143 mmol/L (136-145); Uric Acid 2.7 mg/dL (2.6-6.0)
[2019-01-27 16:15] VITALS: BP 92/61; PULSE 72; RESP 16; TEMP 36.9; O2SAT 97
[2019-01-27 17:15] VITALS: BP 105/69; PULSE 79; RESP 16; TEMP 36.9; O2SAT 97
[2019-01-27] MEDS: prednisoLONE eye drops (5 mL) 1 DROP OPTH.BTL 2 DRP OPHTHALMIC ×2 (17:30→22:58)
--- NOTE | 2019-01-27 20:37 | NURSING ---
cytarabine hung per order. Pt A&Ox3, watching tv in bed, up to bathroom independently without difficulty. Report given to RAMIRO Goddard on the floor. No signs/symptoms of reactions/problems noted.
[2019-01-27] MEDS: traZODone 50 MG Tablet PO (22:56)
[2019-01-27] MEDS: Acyclovir 200 MG Capsule 400 MG PO (23:00)
[2019-01-27] MEDS: busPIRone 15 MG TABLET 7.5 MG PO (23:00)
[2019-01-27] MEDS: Topiramate 100 MG Tablet PO (23:02)
[2019-01-27 23:04] VITALS: BP 102/68; PULSE 89; RESP 18; TEMP 36.8; O2SAT 99
[2019-01-27] MEDS: Ondansetron 8 MG Tablet PO (23:55)
[2019-01-28 04:36] VITALS: BP 100/58; PULSE 84; RESP 18; TEMP 36.7; O2SAT 97
[2019-01-28] MEDS: 0.9% Normal Saline 1,000 ML 125 ML IV ×3 (04:39→23:57)
[2019-01-28] MEDS: 0.9% Saline Lock 10 ML Syringe IV (04:41)
[2019-01-28 05:11] LABS: Anion Gap 5 (5-15); BUN 13 mg/dL (7-18); BUN/Creat Ratio 18.1 RATIO (10-20); Calcium,Total 8.3 mg/dL (8.5-10.1); Chloride 114 mmol/L (98-107); Creatinine, Serum 0.72 mg/dL (0.55-1.02); EST Glomerular Filtration Rate 88 mL/min (>60); Est Glom Filt Rate - Afr Amer 107 mL/min (>60); Estimated Creatinine Clearance 60.43 ml/min; Glucose 116 mg/dL (74-106); LDH 159 U/L (84-246); Potassium 4.1 mmol/L (3.5-5.1); Sodium Level 142 mmol/L (136-145); Uric Acid 2.6 mg/dL (2.6-6.0)
[2019-01-28] MEDS: Acetaminophen/Butalbital/Caffe 1 Tablet PO (07:34)
[2019-01-28 08:00] VITALS: BP 103/66; PULSE 78; RESP 18; TEMP 36.8; O2SAT 100
[2019-01-28] MEDS: busPIRone 15 MG TABLET 7.5 MG PO ×2 (08:48→21:41)
[2019-01-28] MEDS: Acyclovir 200 MG Capsule 400 MG PO ×2 (08:48→21:42)
[2019-01-28] MEDS: Allopurinol 300 MG Tablet PO (08:48)
[2019-01-28] MEDS: Topiramate 100 MG Tablet PO ×2 (08:48→21:42)
[2019-01-28] MEDS: DULoxetine Hcl 60 MG Capsule PO (08:48)
[2019-01-28] MEDS: Pantoprazole Sodium 40 MG Tablet PO (08:48)
[2019-01-28] MEDS: prednisoLONE eye drops (5 mL) 1 DROP OPTH.BTL 2 DRP OPHTHALMIC ×3 (08:49→20:34)
[2019-01-28] MEDS: Enoxaparin 40 MG/0.4 ML Syringe SC (08:49)
[2019-01-28 11:15] VITALS: BP 109/65; PULSE 81; RESP 16; TEMP 36.9; O2SAT 99
[2019-01-28] MEDS: oxyCODONE 5 MG Tablet PO ×2 (14:58→21:41)
[2019-01-28] MEDS: Acetaminophen 325 MG Tablet PO (14:59)
--- NOTE | 2019-01-28 15:17 | CASEMGMT ---
RN CM BURN OUT SCARFING OPERATOR CM to room to meet with patient for initial transition planning/care coordination assessment. RAMIRO PALMA introduced self and role at [facility]. Pt voices understanding and consents to assessment at this time. Pt resting in bed in no distress at this time. Pt is A/O at this time and answers all questions appropriately. Care providers, pharmacy, and demographics verified/updated at this time. PCP: Cristal Specialists: Filomena--oncology Preferred Pharmacy: [facility] Insurance: MCR A & B. Pt states she also has IVAN. Call placed to Registration and spoke with Jane and she was made aware pt states has IVAN. She states she will look into this. Prescription Benefit: Yes, [facility] Living Will/HPOA: States does not have LW or HCPOA . Interested in more information and would like to talk with SW for help with completing paperwork. DURGA Grady, made aware. Pt made aware if she is discharged prior to SW being able to assist her, that she can make an appt with SW as an OP. Given Social Service Rac Card. Pt voices understanding. LNOK: , Manpreet Living Arrangements: Lives in an attached in-law suite to a 2-story farmhouse that was originally built for her in-laws, but they have passed, so pt and her now live in it. Pt states she is independent with personal ADL's. has been doing most of the housework such as cleaning and cooking. She states she has still been doing the laundry. is supportive. Transportation: Pt states drives self and states no transportation concerns at this time. also drives. DME: Denies using any DME and denies needs. HHC/SNF: No history of either. Denies needs for HHC. Pt wishes to return home and states has no concerns with going home at time of discharge. CM to follow for any discharge planning/needs. Pt voices no further concerns/needs at this time. Advised pt to ask for CM if any further questions/concerns/needs arise. Voices understanding. Pt discharge plan/goal: Home Plan: Home Siria CHRISTINE RN, CM
[2019-01-28 17:15] VITALS: BP 106/66; PULSE 97; RESP 18; TEMP 36.9; O2SAT 99
[2019-01-28 19:55] VITALS: BP 109/66; PULSE 85; RESP 16; TEMP 37.4; O2SAT 96
--- NOTE | 2019-01-28 20:25 | NURSING ---
MD AT BEDSIDE EVALUATING PATIENT, NO NEW ORDERS DID SPEAK WITH DR TODD AND STILL DECIDING TO HOLD CHEMO AND WILL BE IN TO EVALUATE PATIENT IN THE MORNING.
[2019-01-28] MEDS: traZODone 50 MG Tablet PO (21:46)
[2019-01-28 21:50] VITALS: BP 118/70; PULSE 87; RESP 16; TEMP 37.7; O2SAT 99
[2019-01-29] MEDS: prednisoLONE eye drops (5 mL) 1 DROP OPTH.BTL 2 DRP OPHTHALMIC (03:40)
[2019-01-29 03:50] VITALS: BP 116/67; PULSE 71; RESP 16; TEMP 36.9; O2SAT 97
[2019-01-29 04:41] LABS: Anion Gap 5 (5-15); BUN 20 mg/dL (7-18); BUN/Creat Ratio 32.2 RATIO (10-20); Chloride 113 mmol/L (98-107); Creatinine, Serum 0.62 mg/dL (0.55-1.02); EST Glomerular Filtration Rate 104 mL/min (>60); Est Glom Filt Rate - Afr Amer 126 mL/min (>60); Estimated Creatinine Clearance 70.18 ml/min; Glucose 115 mg/dL (74-106); LDH 147 U/L (84-246); Phosphorus 4.3 mg/dL (2.5-4.9); Potassium 4.4 mmol/L (3.5-5.1); Sodium Level 142 mmol/L (136-145); Uric Acid 2.8 mg/dL (2.6-6.0)
[2019-01-29] MEDS: 0.9% Normal Saline 1,000 ML 125 ML IV (07:05)
[2019-01-29 08:29] VITALS: BP 105/69; PULSE 83; RESP 15; TEMP 36.8; O2SAT 100
[2019-01-29] MEDS: oxyCODONE 5 MG Tablet PO (08:31)
[2019-01-29] MEDS: Allopurinol 300 MG Tablet PO (08:33)
[2019-01-29] MEDS: Pantoprazole Sodium 40 MG Tablet PO (08:33)
--- NOTE | 2019-01-29 08:42 | DCINST_ITS ---
You will use the following diet at home:: No restrictions Your food should be the consistency of: Regular Your liquids should be the consistency of: Regular/Thin Discharge Activity: Return to Normal Activity Call your doctor if you observe: Fever of 101 or Higher Allergies/Adverse Reactions: Allergies morphine Allergy (Verified 12/16/18 08:21) Hives Medications to take at Discharge Allopurinol 300 mg PO DAILY 12/16/18 Buspirone HCl 10 mg PO BID 12/16/18 Duloxetine Hcl [Cymbalta] 60 mg PO DAILY 12/16/18 Oxycodone HCl/Acetaminophen [Percocet 5-325] 1 tab PO DAILY PRN 12/16/18 Topiramate [Topamax] 100 mg PO BID 12/16/18 proMETHazine tablet [Phenergan tablet] 25 mg PO Q6H PRN PRN 12/16/18 traZODone [Desyrel] 100 mg PO QHS 12/16/18 Acyclovir 400 mg PO BID 01/27/19 Albuterol Sulfate [Ventolin Hfa] 2 puff IN Q4H 01/27/19 Butalbital/Aspirin/Caffeine [Fiorinal 50-325-40 mg Capsule] 1 ea PO Q8H PRN 01/27/19 Fluticasone Propionate 1 spray NARES DAILY PRN 01/27/19 Omeprazole 40 mg PO DAILY 01/27/19 Ondansetron [Zofran] 8 mg PO Q8H PRN PRN 01/27/19 Primary Care Physician: Juany Bee MD [Primary Care Provider] - Test Results: Test results from this visit will be discussed in further detail at your follow- up appointment, if applicable. Proposed Discharge Date: 01/29/19
--- NOTE | 2019-01-29 08:45 | PCM.DC.SUM ---
Discharge Date and Diagnosis Date of Admission: 01/27/19 Date of Discharge: 01/29/19 - Primary Discharge Diagnosis Mantle cell lymphoma Hospital Course and Treatment Operations: None Procedures: None Summary of Care Provided: The patient is a 58 year old F admitted for her fourth cycle (second cycle of high dose Soniya C) of chemotherapy. Patient tolerated very well but on the second night she developed supraorbital pain on the right. Neurologic exam was benign. Dose of air C was omitted. She was feeling well and was having no pain. No neurologic symptoms. He agreed to proceed with third dose of chemotherapy. Then discharged home. - Physical Exam Vitals/I&O's: Vital Signs Temp Pulse Resp BP Pulse Ox 98.2 F 83 15 105/69 100 01/29/19 08:29 01/29/19 08:29 01/29/19 08:29 01/29/19 08:29 01/29/19 08:29 Oxygen Delivery Method Room Air Weight: 56.5 kg Body Mass Index (BMI) 24.3 Intake and Output for Last 24 Hours 01/27/19 01/28/19 01/29/19 23:59 23:59 23:59 Intake Total 1684.00 / 1684.00 4137.34 / 4137.34 1085.42 / 1085.42 Balance 1684.00 / 1684.00 4137.34 / 4137.34 1085.42 / 1085.42 General: Alert, Oriented x3 HEENT: PERRLA, EOMI Lungs: Normal air movement Cardiovascular: Regular Rhythm Abdomen: Soft, Non Tender Neurological: Cranial nerves II-XII grossly intact, Deep Tendon Reflexes 2+/4 and Symmetrical, Motor Exam 5/5 strength throughout Laboratory Results 01/29/19 04:06: Sodium 142, Potassium 4.4, Chloride 113 H, Carbon Dioxide 24.0, Anion Gap 5, BUN 20 H, Creatinine 0.62, Estim Creat Clear Calc 70.18, Est GFR (MDRD) Af Amer 126, Est GFR (MDRD) Non-Af 104, BUN/Creatinine Ratio 32.2 H, Glucose 115 H, Uric Acid 2.8, Calcium 8.0 L, Phosphorus 4.3, Lactate Dehydrogenase 147 Current Medications Acetaminophen (Tylenol) 325 mg PO Q12H PRN PRN Reason: Pain Score 6-10/10 Last Admin: 01/28/19 14:59 Dose: 325 mg Documented by: Acetaminophen/Butalbital/Caffeine (Fioricet) 1 tablet PO TID PRN PRN PRN Reason: HEADACHE Last Admin: 01/28/19 07:34 Dose: 1 tablet Documented by: Acyclovir (Zovirax) 400 mg PO BID [facility] Last Admin: 01/28/19 21:42 Dose: 400 mg Documented by: Albuterol Sulfate (Ventolin Aerosols) 2.5 mg INHALATION Q4H PRN PRN PRN Reason: SOB/WHEEZING Allopurinol (Zyloprim) 300 mg PO DAILY@0800 [facility] Last Admin: 01/29/19 08:33 Dose: 300 mg Documented by: Buspirone HCl (Buspar) 7.5 mg PO BID [facility] Last Admin: 01/28/19 21:41 Dose: 7.5 mg Documented by: Duloxetine HCl (Cymbalta) 60 mg PO DAILY [facility] Last Admin: 01/28/19 08:48 Dose: 60 mg Documented by: Enoxaparin Sodium (Lovenox) 40 mg SC DAILY@1000 [facility] Last Admin: 01/28/19 08:49 Dose: 40 mg Documented by: Heparin Sodium (Beef Lung) () 50 units IV UD PRN PRN Reason: Port-a-Cath (VAD)Heparin Flush Sodium Chloride () 1,000 mls @ 125 mls/hr IV .Q8H [facility] Last Infusion: 01/29/19 08:38 Dose: 0 mls/hr Documented by: Cytarabine 3,000 mg/ Sodium (Chloride) 280 mls @ 93.333 mls/hr IV Q12H [facility] Stop: 01/29/19 10:59 Last Admin: 01/29/19 08:33 Dose: 93.3 mls/hr Documented by: Nutritional Formula (Lactose Free) (Ensure Enlive) 120 ml PO 4X/DAY [facility] Last Admin: 01/28/19 21:41 Dose: 120 ml Documented by: Oxycodone HCl (Oxyir) 5 mg PO Q12H PRN PRN Reason: Pain Score 6-10/10 Last Admin: 01/29/19 08:31 Dose: 5 mg Documented by: Pantoprazole Sodium (Protonix) 40 mg PO DAILY [facility] Last Admin: 01/29/19 08:33 Dose: 40 mg Documented by: Prednisolone Acetate (Pred Forte Eye Drops (5 Ml)) 2 drop OPHTHALMIC Q6H ADITHYA Last Admin: 01/29/19 03:40 Dose: 2 drop Documented by: Promethazine HCl (Phenergan) 25 mg IV Q6H PRN PRN Reason: NAUSEA/VOMITING Sodium Chloride () 10 - 40 ml IV UD PRN PRN Reason: Port-a-Cath (VAD) Flush Last Admin: 01/28/19 04:41 Dose: 30 ml Documented by: Sodium Chloride (0.9% Nacl (Sterile) Posiflush) 10 - 40 ml IV UD PRN PRN Reason: Port access or dressing change Topiramate (Topamax) 100 mg PO BID ADITHYA Last Admin: 01/28/19 21:42 Dose: 100 mg Documented by: Trazodone HCl (Desyrel) 50 mg PO QHS PRN PRN PRN Reason: SLEEP Last Admin: 01/28/19 21:46 Dose: 50 mg Documented by: Discharge Activity: Return to Normal Activity Call your doctor if you observe: Fever of 101 or Higher Home Medications: Medications to take at Discharge Allopurinol 300 mg PO DAILY 12/16/18 Buspirone HCl 10 mg PO BID 12/16/18 Duloxetine Hcl [Cymbalta] 60 mg PO DAILY 12/16/18 Oxycodone HCl/Acetaminophen [Percocet 5-325] 1 tab PO DAILY PRN 12/16/18 Topiramate [Topamax] 100 mg PO BID 12/16/18 proMETHazine tablet [Phenergan tablet] 25 mg PO Q6H PRN PRN 12/16/18 traZODone [Desyrel] 100 mg PO QHS 12/16/18 Acyclovir 400 mg PO BID 01/27/19 Albuterol Sulfate [Ventolin Hfa] 2 puff IN Q4H 01/27/19 Butalbital/Aspirin/Caffeine [Fiorinal 50-325-40 mg Capsule] 1 ea PO Q8H PRN 01/27/19 Fluticasone Propionate 1 spray NARES DAILY PRN 01/27/19 Omeprazole 40 mg PO DAILY 01/27/19 Ondansetron [Zofran] 8 mg PO Q8H PRN PRN 01/27/19 Primary Care Physician: Juany Bee MD [Primary Care Provider] - Medical Necessity - Tobacco Use Smoking Status: Current every day smoker - Patient not psychologically motivated to quit Meaningful Use Info Meaningful Use Diagnoses (Choose all that apply): None applicable
--- NOTE | 2019-01-29 10:06 | PHA.DC.MR ---
Pharmacy Service has performed discharge medication reconciliation for this patient. Home Medications Allopurinol 300 mg PO DAILY 12/16/18 Buspirone HCl 10 mg PO BID 12/16/18 Duloxetine Hcl [Cymbalta] 60 mg PO DAILY 12/16/18 Oxycodone HCl/Acetaminophen [Percocet 5-325] 1 tab PO DAILY PRN 12/16/18 Topiramate [Topamax] 100 mg PO BID 12/16/18 proMETHazine tablet [Phenergan tablet] 25 mg PO Q6H PRN PRN 12/16/18 traZODone [Desyrel] 100 mg PO QHS 12/16/18 Acyclovir 400 mg PO BID 01/27/19 Albuterol Sulfate [Ventolin Hfa] 2 puff IN Q4H 01/27/19 Butalbital/Aspirin/Caffeine [Fiorinal 50-325-40 mg Capsule] 1 ea PO Q8H PRN 01/27/19 Fluticasone Propionate 1 spray NARES DAILY PRN 01/27/19 Omeprazole 40 mg PO DAILY 01/27/19 Ondansetron [Zofran] 8 mg PO Q8H PRN PRN 01/27/19 The patient's discharge medication list was reviewed for discrepancies and discrepancies were resolved.
[2019-01-29 11:32] VITALS: BP 117/75; PULSE 93; RESP 14; TEMP 36.8; O2SAT 100
[2019-01-29] MEDS: 0.9% Saline Lock 10 ML Syringe IV (11:40)
== END 2019-01-29 12:13 | disposition home or self-care (01) | DRG 847 ==
PROVIDERS: Admitting Provider Internal Medicine Hematology & Oncology; Family Provider Internal Medicine; PCP Internal Medicine; Referring Provider Internal Medicine Hematology & Oncology; Visit Provider Internal Medicine Hematology & Oncology
DX: Z51.11 Encounter for antineoplastic chemotherapy (principal); C83.10 Mantle cell lymphoma, unspecified site; F17.200 Nicotine dependence, unspecified, uncomplicated; Z23 Encounter for immunization
CPT/HCPCS: 80048; 83615; 84100; 84550; 97802; 99406; G0008; J7030; J7050; J9312; 90686; A4216; J2405; J3490; J9100

== ENCOUNTER 2019-01-29 17:33 | Emergency (ER) | payer MEDICARE, MEDICAID, SELFPAY ==
[2019-01-29 17:35] VITALS: BP 127/76; PULSE 89; RESP 17; TEMP 37.1; O2SAT 100; BMI 23.8
--- NOTE | 2019-01-29 18:03 | ED.VISSUMM ---
- ER Visit Summary Date of Service: 01/29/19 Chief Complaint: Headache, nausea, vomiting History of Present Illness: The patient is a 58 F who has a headache, nausea and vomiting. This started today. She had a slight headache last night which got better. She states that she vomited 5 times this afternoon. She states it feels like her eyeball is in a vice. She has no abdominal pain with this. The patient just left the hospital today after receiving rounds of chemotherapy for mantle cell lymphoma. She had the pain last night but was evaluated by the hospitalist and had a normal neurologic exam at that time. She states she has a history of a pituitary tumor that was shrunk by pills. Physical Examination: Vital signs reviewed. HEENT exam unremarkable. Heart is regular rate and rhythm without murmurs. Lungs are clear to auscultation. Abdomen is soft and nontender. Extremities reveal no edema. Skin exam normal. Neurologic exam normal. Test Results: Laboratory studies show a hemoglobin of 8.6, potassium 3.3. CAT scan of the head reveals nothing acute Emergency Department Course and Treatment: Patient was given IV fluids and Zofran. She feels much better. I spoke with Dr. Butt and with the patient. She would like to go home. Dr. Butt is okay with this. He states he will contact the patient tomorrow to see how she is feeling. She states that she does have some nausea medicines that she can take at home. Treatment Plan: [] Disposition: Discharge Impression: Vomiting Mantle cell lymphoma on chemotherapy This note was generated with [employer] software. It may contain incorrect words, spelling, and punctuation that were not noted in review of the chart prior to signing ED Disposition - Plan for ED Patient: Referrals: Juany Bee MD [Primary Care Provider] -
--- NOTE | 2019-01-29 18:22 | CT_ITS ---
STUDY: CT BRAIN WITHOUT CONTRAST REASON FOR EXAM: Female, 58 years old. Headache, nausea and vomiting RADIATION DOSAGE (If Supplied By Facility): CTDIvol = ( 44.99 ) mGy, DLP = ( 728.62 ) mGycm TECHNIQUE: Transaxial CT imaging of the brain was performed without administration of intravenous contrast material. Individualized dose optimization techniques were used for this CT. COMPARISON: No relevant priors. FINDINGS: Normal soft tissue structures. Normal calvarium. There is a nasal bone fracture of indeterminate age. Normal size ventricles and extra-axial spaces for the patient''s age. Normal white matter tracts of the cerebral hemispheres. Normal basal ganglia and thalami. Normal brainstem. Normal cerebellum. There is no intracranial hemorrhage. There are no findings of an acute ischemic infarction. Normal visualized paranasal sinuses. CT/Brain/Head without Contrast IMPRESSION: Ms. Bone fracture of indeterminate age. There is no intracranial hemorrhage or evidence of acute infarct. No mass lesion is seen. Electronically Signed: Jose Hanna MD at 19:49 EST , Service support ,
[2019-01-29 18:32] VITALS: O2SAT 99
[2019-01-29] MEDS: 0.9% Normal Saline 1,000 ML 1000 ML IV (18:34)
[2019-01-29] MEDS: Ondansetron 4 MG/2 ML Vial IV (18:35)
[2019-01-29 18:36] VITALS: PULSE 81; RESP 16; O2SAT 100
[2019-01-29 18:51] LABS: Absolute Lymphocyte Count 0.25 X10^3/uL (0.83-4.51); Absolute Neutrophil Count 5.2 X10^3/uL (2.0-7.7); Basophil# 0.01 X10^3/uL; Basophil% 0.2 % (0-1); Eosinophil# 0.01 X10^3/uL; Eosinophils% 0.2 % (0-5); Hematocrit 25.3 % (37-47); Hemoglobin 8.6 g/dL (12.0-15.0); Lymphocyte # 0.25 X10^3/ul (4.0); Lymphocyte % 4.4 % (19-41); Mean Corpuscular Hgb 36.8 pg (27.0-32.0); Mean Corpuscular Volume 108.1 fL (81-99); Mean Platelet Vol. 9.5 fl (6.2-12.0); Monocyte# 0.19 X10^3/uL; Monocyte% 3.3 % (0-10); NRBC Flagged by Analyzer 0 % (0-5); Neutrophil # 5.21 X10^3/uL (2.7-7.7); Neutrophil % 91.5 % (47-70); POSITIVE DIFFERENTIAL YES; POSITIVE MORPHOLOGY YES; Platelet Count 196 K/mm3 (150-450); RBC Distribution Width CV 20.4 % (11.6-14.6); RBC Distribution Width SD 78.9 fl (35.1-43.9); Red Blood Count 2.34 M/mm3 (4.2-5.4); White Blood Count 5.7 K/mm3 (4.4-11.0)
[2019-01-29 18:53] LABS: Differential Indicated SCAN CRITERIA MET
[2019-01-29 19:18] LABS: ALB/GLOB Ratio 1.2 RATIO (0.9-2.4); AST(SGOT) 17 U/L (15-37); Alanine Aminotransfer ALT/SGPT 14 U/L (13-56); Albumin, Serum 3.5 g/dL (3.2-5.0); Alkaline Phosphatase 54 U/L (45-117); Anion Gap 8 (5-15); BUN 16 mg/dL (7-18); BUN/Creat Ratio 24.7 RATIO (10-20); Calcium,Total 8.5 mg/dL (8.5-10.1); Chloride 113 mmol/L (98-107); Creatinine, Serum 0.65 mg/dL (0.55-1.02); EST Glomerular Filtration Rate 99 mL/min (>60); Est Glom Filt Rate - Afr Amer 120 mL/min (>60); Estimated Creatinine Clearance 66.94 ml/min; Globulin 2.9 g/dL (2.2-4.2); Glucose 97 mg/dL (74-106); Lipase 138 U/L (73-393); Potassium 3.3 mmol/L (3.5-5.1); Protein, Total 6.4 g/dL (6.4-8.2); Sodium Level 144 mmol/L (136-145)
[2019-01-29 19:25] LABS: Anisocytosis 1+; Macrocytosis 1+; Platelet Estimate ADEQUATE (ADEQ); Red Cell Morphology N CHROM NORMAL (NORM C&C)
--- NOTE | 2019-01-29 20:04 | ED.DEP ---
ED Disposition - Plan for ED Patient: Disposition: Home or Assisted Living Instructions: VOMITING (5y-Adult) Referrals: Juany Bee MD [Primary Care Provider] -
[2019-01-29 20:13] VITALS: BP 134/79; PULSE 89; RESP 16; O2SAT 97
--- NOTE | 2019-01-29 20:14 | ED.RN ---
THIS NURSE REVIEWED D/C INSTRUCTIONS WITH PT. PT VERBALIZED UNDERSTANDING OF INSTRUCTIONS. PORT DEASSESSED. PT TOLERATED WELL. PT DENIES FURTHER NEEDS OR QUESTIONS AT THIS TIME.
== END 2019-01-29 20:16 | disposition home or self-care (01) ==
PROVIDERS: Emergency Provider Emergency Medicine; Family Provider Internal Medicine; PCP Internal Medicine
DX: R11.2 Nausea with vomiting, unspecified (principal); C83.10 Mantle cell lymphoma, unspecified site; R51 Headache
CPT/HCPCS: 70450; 80053; 83690; 85025; 99282; J7030; A4216; J2405

== ENCOUNTER → 2019-02-23 10:14 | Outpatient (CLI) | payer MEDICARE, MEDICAID, SELFPAY ==
[2019-01-29 17:35] VITALS: BMI 23.8
[2019-02-23 10:30] LABS: Hematocrit 28.8 % (37-47); Hemoglobin 9.1 g/dL (12.0-15.0); Mean Corp Hgb Conc 31.6 g/dL (32-36); Mean Corpuscular Hgb 36.8 pg (27.0-32.0); Mean Corpuscular Volume 116.6 fL (81-99); Mean Platelet Vol. 9.9 fl (6.2-12.0); POSITIVE COUNT YES; POSITIVE DIFFERENTIAL YES; POSITIVE MORPHOLOGY YES; Platelet Count 188 K/mm3 (150-450); RBC Distribution Width CV 18.2 % (11.6-14.6); RBC Distribution Width SD 78.6 fl (35.1-43.9); Red Blood Count 2.47 M/mm3 (4.2-5.4)
[2019-02-23 10:34] LABS: Differential Indicated MANUAL DIFF
[2019-02-23 11:28] LABS: Anisocytosis 1+; Eosinophil 1 % (0-5); Lymphocyte 3 % (19-41); Metamyelocyte 2 % (0-1); Monocyte 7 % (0-10); Neutrophil-Band 1 % (0-5); Neutrophil-Segmented 85 % (47-70); Platelet Estimate ADEQUATE (ADEQ); Promyelocyte 1 (0-0); Red Cell Morphology N CHROM NORMAL (NORM C&C); Total Cells Counted 100 (MANUAL DIFF)
[2019-02-23 11:29] LABS: Absolute Neutrophil Count 33.8 X10^3/uL (2.0-7.7)
[2019-02-23 11:31] LABS: White Blood Count 39.3 K/mm3 (4.4-11.0)
[2019-02-24 13:37] LABS: Pathologist Review Reviewed
== END ==
PROVIDERS: Family Provider Internal Medicine; PCP Internal Medicine; Referring Provider Internal Medicine Hematology & Oncology; Visit Provider Internal Medicine Hematology & Oncology
DX: C83.18 Mantle cell lymphoma, lymph nodes of multiple sites (principal)
CPT/HCPCS: 85025

== ENCOUNTER → 2022-08-14 | Outpatient (CLI) | payer MEDICARE, SELFPAY ==
--- NOTE | 2022-08-14 09:30 | PET_ITS ---
EXAMINATION: FDG PET/CT INDICATIONS: 62-year-old female with a history of lymphoma, presenting for initial staging examination. COMPARISON EXAMINATION: None available. INDEX LESION SIZE SUV INTERPRETATION Abdominal retroperitoneum and pelvis, bilateral inguinal regions 25.7 mm, largest 19.0 max, Lugano score 5 Fulfills quantitative criteria for viable neoplasm TECHNIQUE: Following the intravenous administration of 14.44 mCi of F-18 deoxyglucose via the right antecubital fossa, multiplanar image acquisitions of the head, neck, chest, abdomen and pelvis to the level of the midthigh, obtained at one-hour post radiopharmaceutical administration contemporaneously interpreted with the current CT of the chest, abdomen and pelvis dated 08/14/2022 via coregistration reveal: SERUM GLUCOSE LEVEL: 118 mg/dL HEIGHT: 60 inches WEIGHT: 95 pounds FINDINGS: HEAD/NECK: There is no evidence of abnormal increased glucose metabolism in the pharyngeal mucosal space, parapharyngeal space, oropharynx, bilateral-lateral and anterior neck, hypopharynx and distribution of the larynx. The visualized portion of the cerebral cortical-subcortical structures demonstrate symmetric and preserved glucose metabolism. CHEST: There is no quantitative scintigraphic evidence of abnormal increased glucose metabolism within the context of the bilateral hemithorax pulmonary parenchyma, right and left hemithorax at the pleural interface, mediastinal structures, and left-right thoracic perihilum. There is visualized radiopharmaceutical concentration noted in the left ventricular myocardium, consistent with the fed state. CT of the chest demonstrates the following anatomic characteristics: Coronary arterial calcification is observed. Atherosclerotic calcification is defined in the thoracic aorta without evidence of dilatation, aneurysm formation. Linear parenchymal changes noted in the bilateral hemithorax are nonglucose avid. Subcentimeter axillary soft tissue densities reveal no evidence of increased tracer uptake. ABDOMEN/PELVIS: Facilitated uptake is noted in the mid abdominal retroperitoneum, retro-aortic region to the right of the midline, the right common iliac arterial distribution, the bilateral inguinal regions, the left obturator lymph node basin, the right and left external iliac lymph nodes. The calculated maximum standard uptake value is 19.0. The largest individual hypermetabolic focus demonstrates a maximal axial diameter of 25.7 mm. The maximum that should be is 19.0. The Lugano-Deauville score is 5. Normal physiologic distribution of the radiopharmaceutical is identified in the hepatic (1.3) and splenic parenchyma, both renal units, urinary bladder, and visualized intestinal tract. CT of the abdomen and pelvis is remarkable for the following: Atherosclerotic calcification is defined in the abdominal aorta without evidence of dilatation, aneurysm formation. Pelvic arterial calcification is defined. Calcified phlebolith formation is noted in the left lower hemipelvis. SKELETAL: Degenerative changes defined in the thoracic and lumbar spine demonstrate no evidence of increased glucose metabolism. There are no sclerotic, mixed sclerotic-lytic, or primarily lytic changes defined in the axial skeletal structures with evidence of increased FDG uptake. PET/PET/CT Tumor Base -Thigh Subs IMPRESSION: 1. ABNORMAL EXAMINATION INDICATIVE OF MALIGNANT-VIABLE NEOPLASM. 2. Increased radiopharmaceutical concentration noted in the abdominal retroperitoneum, bilateral hemipelvis and inguinal lymph node distributions fulfills quantitative criteria for viable neoplasm. (Bryanna et al, Journal of Clinical Oncology, 32: 3059, 2014). 3. No other quantitatively significant hypermetabolic abnormalities are noted. Electronic Signature Luis Miller D.O. Accurate Quantification of SUVs and standardized LUGANO-[place]IL[place] scores specific to lymphoma FDG PET-CT study interpretation for this report are calculated using the exclusive [employer]. (U.S. Patent No. [phone] 674, 983 B2 [phone] [place] patent [phone]). Standardization and correction of the FDG SUV metric via [employer] technology allow for vendor non-specific objective quantitative examination comparison and optimization of the sensitivity and specificity of the FDG PET-CT examination. Electronically Signed: Luis Miller, at 8:43 EDT ,
== END | disposition home or self-care (01) ==
LOC: ONC 09:12
PROVIDERS: PCP Internal Medicine; Referring Provider Nurse Practitioner; Visit Provider Nurse Practitioner
DX: C83.18 Mantle cell lymphoma, lymph nodes of multiple sites (principal); R59.1 Generalized enlarged lymph nodes
CPT/HCPCS: 78815; A9552

== ENCOUNTER → 2023-02-05 | Outpatient (CLI) | payer MEDICARE, SELFPAY ==
--- NOTE | 2023-02-05 07:30 | PET_ITS ---
EXAMINATION: FDG PET/CT ? INDICATIONS: 62-year-old female with a history of lymphoma, presenting for restaging examination. ? COMPARISON EXAMINATION: FDG-PET CT study dated 08/14/2022. ? INDEX LESION SIZE SUV LUGANO SCORE INTERPRETATION NEW Bilateral anterior and lateral neck, submental regions 13.1 mm, largest 8.5 max 5 Fulfills quantitative criteria for viable neoplasm ? NEW Bilateral axillary and mediastinal, thoracic perihilum 35.6 mm, largest 11.7 max 5 Fulfills quantitative criteria for viable neoplasm ? PERSISTENT T NEW Abdominal-pelvic retroperitoneal mesentery 37.8 mm compared to 25.7 mm, 08/14/2022 15.6 max compared to 19.0, 08/14/2022 5 Fulfills quantitative criteria for viable neoplasm, interim metabolic progression ? NEW Spleen-splenic parenchyma ? 6.8, greater than hepatic reference 5 Fulfills quantitative criteria for viable neoplasm ? TECHNIQUE: Following the intravenous administration of 14.38 mCi of F-18 deoxyglucose via the right antecubital fossa, multiplanar image acquisitions of the head, neck, chest, abdomen and pelvis to the level of the midthigh, obtained at one-hour post radiopharmaceutical administration contemporaneously interpreted with the current CT of the chest, abdomen and pelvis dated 02/05/2023 and prior FDG-PET CT study dated 08/14/2022 via coregistration reveal: ? SERUM GLUCOSE LEVEL:? 130 mg/dL? HEIGHT:?? 60 inches WEIGHT:?? 86 pounds ? FINDINGS: ? HEAD/NECK:? Newly identified increased radiopharmaceutical concentration is manifest in the bilateral lateral neck involving level IIA and III, the left lateral neck involving level IIB, the anterior neck involving left neck involving level IV and bilateral anterior neck involving level , the right and left submental regions involving level IB and left paramedian submental region involving IA. The calculated maximum standard uptake value is 8.5. The maximum axial diameter of the largest corresponding soft tissue density is 13.1 mm. The Lugano-Deauville score is 5. ? The visualized portion of the cerebral cortical-subcortical structures demonstrate symmetric and preserved glucose metabolism. ? CHEST:? Facilitated uptake is newly visualized in the right and left axillary, retropectoral regions, the pre-subcarinal mediastinum, and bilateral thoracic perihilum. The calculated maximum standard uptake value is 11.7. The largest corresponding soft tissue density demonstrates a maximal axial diameter of 35.6 mm. The Lugano-Deauville score is 5. ? CT of the chest demonstrates the following anatomic characteristics: On review of CT of the chest report, there is no definitive interval change compared to the study dated 08/14/2022. ? ABDOMEN/PELVIS:? Facilitated newly and persistently visualized hypermetabolic foci are noted in the upper-lower abdominal retroperitoneum, the bilateral hemipelvis, and inguinal lymph node distributions. The current calculated maximum standard uptake value is 15.6 compared to 19.0. The maximal axial diameter of the largest corresponding soft tissue density is 37.8 mm compared to 25.7 mm. The Lugano-Deauville score is 5, unchanged. Facilitated uptake is noted in a normal-sized spleen. The calculated standard uptake value is 6.8 (corrected), greater than the hepatic reference. The Lugano-Deauville score is 5. ? CT of the abdomen and pelvis is remarkable for the following: On review of CT of the chest report, there is no definitive interval change compared to the study dated 08/14/2022. Retained oral contrast material is noted. ? SKELETAL:? There is homogenous enhanced glucose concentration evident in the visualized appendicular and axial skeletal structures. ? PET/PET/CT Tumor Base -Thigh Subs IMPRESSION: 1. Both refined and newly apparent foci of increased radiopharmaceutical concentration manifest in the bilateral anterior and lateral neck, the right-left submental regions, the axillary, retropectoral, and mediastinal thoracic perihilar soft tissue densities, the abdominal retroperitoneum and pelvis fulfill quantitative criteria for viable neoplasm. (Bryanna, et al, Journal of Clinical Oncology, 32: 3059, 2014). 2. Facilitated uptake newly apparent in the splenic parenchyma fulfills quantitative criteria for viable hepatic neoplastic infiltration.? (Gwendolyn et al., Journal of Nuclear Medicine 44:1072, 2004). 3. Diffuse axial skeletal uptake likely represents post therapeutic changes. (Jorge A smith al, Journal of Clinical Oncology 16:173, 1998). If neoplasm is a diagnostic consideration, correlation with bone marrow aspirate is recommended. 4. Overall, compared to the prior FDG-PET CT study dated 08/14/2022, there is interim metabolic progression of defined viable neoplastic disease. ? Electronic Signature Luis Miller D.O. Accurate Quantification of SUVs for this report are calculated using the exclusive [employer]. (U.S. Patent No. [phone] [phone] 983 B2 [phone] [place] patent [phone]). Standardization and correction of the FDG SUV metric via ACCUQUAN technology allow for vendor non-specific objective quantitative examination comparison and optimization of the sensitivity and specificity of the FDG PET-CT examination. . [email or web address] Electronically Signed: Luis Miller DO at 23:29 EST ,
== END | disposition home or self-care (01) ==
LOC: ONC 07:12
PROVIDERS: PCP Internal Medicine; Referring Provider Internal Medicine Hematology & Oncology; Visit Provider Internal Medicine Hematology & Oncology
DX: C83.18 Mantle cell lymphoma, lymph nodes of multiple sites (principal)
CPT/HCPCS: 78815; A9552

== ENCOUNTER 2023-06-07 12:55 | Emergency (ER) | payer MEDICARE, SELFPAY ==
[2023-06-07 12:57] VITALS: BP 118/58; PULSE 96; RESP 14; TEMP 35.8; O2SAT 96; O2SAT 97; BMI 19.7
[2023-06-07 13:06] VITALS: O2SAT 96
--- NOTE | 2023-06-07 13:17 | EX.ED.DYSGE1 ---
HPI <FRANK Young - Last Filed: 06/07/23 15:21> History of Present Illness Chief Complaint: Back Narrative Narrative: 63-year-old female states she fell out of bed last night and has back pain. She does not recall what happened. Her family member checks on her overnight and when he walked in she was sitting on the edge of the bed and told him she had fallen onto her back. It is a carpeted area and she had no signs of injury and went back to bed. This morning she is complaining of mid back and right scapular pain. She has no headache or neck pain. No trouble breathing. She is on Percocet every 8 hours for pain due to her cancer. She has mantle cell lymphoma. She is not on blood thinners. PFSH <FRANK Young - Last Filed: 06/07/23 15:21> [facility] Medical History no medical history Home Medications allopurinol 300 mg tablet 300 mg PO DAILY gout 12/16/18 [History Last Taken 01/27/19] buspirone 7.5 mg tablet 10 mg PO BID antidepressant 12/16/18 [History Last Taken 01/27/19] duloxetine 60 mg capsule,delayed release 60 mg PO DAILY antidepressant 12/16/18 [History Last Taken 01/27/19] oxycodone-acetaminophen 5 mg-325 mg tablet 1 tab PO DAILY PRN Pain Or Fever 12/16/18 [History Last Taken 01/26/19] promethazine 25 mg tablet 25 mg PO Q6H PRN PRN Nausea 12/16/18 [History Last Taken 01/27/19] topiramate 100 mg tablet 100 mg PO BID headaches 12/16/18 [History Last Taken 01/27/19] trazodone 100 mg tablet 100 mg PO QHS sleep 12/16/18 [History Last Taken 01/26/19] acyclovir 400 mg tablet 400 mg PO BID antibiotic 01/27/19 [History Last Taken 01/27/19] albuterol sulfate 90 mcg/actuation aerosol inhaler 2 puff IN Q4H wheezing 01/27/19 [History Last Taken 01/27/19] yuzhdicsua-xywxzsm-tqzbuayp 50 mg-325 mg-40 mg capsule 1 ea PO Q8H PRN Pain Or Fever 01/27/19 [History Last Taken 01/27/19] fluticasone propionate 50 mcg/actuation nasal spray,suspension 1 spray NARES DAILY PRN Nasal Dryness 01/27/19 [History Last Taken 01/26/19] omeprazole 40 mg capsule,delayed release 40 mg PO DAILY reflux 01/27/19 [History Last Taken 01/27/19] ondansetron HCl 8 mg tablet 8 mg PO Q8H PRN PRN Nausea 01/27/19 [History Last Taken 01/27/19] Allergy/AdvReac Type Severity Reaction Status Date / Time morphine Allergy Mild Other Verified 06/07/23 12:57 Social History Smoking Status: Current every day smoker tobacco type: cigarettes ROS <FRANK Young - Last Filed: 06/07/23 15:21> ROS ED ROS Narrative CVS: Negative for chest pain. Respiratory: Negative for shortness of breath. GI: Negative for nausea, vomiting. Neuro: Negative for headache, motor/sensory dysfunction. Skin: Negative for wound. EXAM <FRANK Young - Last Filed: 06/07/23 15:21> Physical Exam Narrative Exam Narrative: CONST: Patient sitting in no acute distress. EYES: Normal inspection. HEAD: Normocephalic/atraumatic. NECK: Normal inspection. RESP: No respiratory distress, CTAB. CVS: Regular rate and rhythm, no murmur, no gallop. ABD: Soft and nontender, no guarding or rebound, nondistended. Back: Normal inspection, midline thoracic tenderness without step-offs, no bruising or swelling. Tender over right scapula and trapezius. SKIN: Color normal, no rash, warm, dry, intact. EXTREMITIES: Normal appearance, full ROM upper and lower extremities, no bony tenderness, 2+ radial and DP pulses NEURO: Alert and answering questions appropriately. PSYCH: Normal affect. Const Vital Signs: 06/07/23 12:57 06/07/23 12:57 06/07/23 13:04 Temperature 96.5 F L 96.5 F L Temperature Source Temporal Temporal Pulse Rate 96 96 Respiratory Rate 14 14 Respiratory Effort Non-Labored Short of Breath Blood Pressure 118/58 L 118/58 L Blood Pressure Mean 78 78 Pulse Ox 97 96 Oxygen Delivery Method Room Air Room Air 06/07/23 13:06 06/07/23 14:49 Temperature 97 F L Temperature Source Pulse Rate 89 Respiratory Rate 14 Respiratory Effort Short of Breath Blood Pressure 116/78 Blood Pressure Mean 90 Pulse Ox 97 Oxygen Delivery Method Room Air <Dr. Brodie Hopper DO - Last Filed: 06/07/23 14:49> Physical Exam Const Vital Signs: 06/07/23 12:57 06/07/23 12:57 06/07/23 13:04 Temperature 96.5 F L 96.5 F L Temperature Source Temporal Temporal Pulse Rate 96 96 Respiratory Rate 14 14 Respiratory Effort Non-Labored Short of Breath Blood Pressure 118/58 L 118/58 L Blood Pressure Mean 78 78 Pulse Ox 97 96 Oxygen Delivery Method Room Air Room Air 06/07/23 13:06 06/07/23 14:49 Temperature 97 F L Temperature Source Pulse Rate 89 Respiratory Rate 14 Respiratory Effort Short of Breath Blood Pressure 116/78 Blood Pressure Mean 90 Pulse Ox 97 Oxygen Delivery Method Room Air MDM <FRANK Young - Last Filed: 06/07/23 15:21> [facility] MDM Narrative Medical decision making narrative: History gathered from: Patient, family member Differential: Back contusion, spinal fracture, rib fracture Patient has pain in her right ribs and mid thoracic region of the back from a fall last night. She is awake alert with stable vital signs. She has no external signs of injury. She is tender over the right mid back and ribs with no deformity or crepitus and no bruising or swelling. Normal heart and lung sounds. Moving all extremities without pain or tenderness. X-rays of the chest and thoracic spine show no acute traumatic injuries. I spoke with her primary care doctor, Dr. Bee, who states she will prescribe Percocet for the patient. She was happy with this plan and discharged in stable condition. Radiography Diagnostic Testing: Clinical Impression(s) from Imaging Studies Chest X-Ray 06/07/23 13:25 IMPRESSION: Hyperinflation. Prominence of the central pulmonary arteries. Electronically Signed: James Eldridge MD at 14:06 EDT , Thoracic Spine X-Ray 06/07/23 13:25 IMPRESSION: Multilevel disc space narrowing. No vertebral fracture is seen. Electronically Signed: James Eldridge MD at 14:07 EDT , <Dr. Brodie Hopper, DO - Last Filed: 06/07/23 14:49> MDM History & Record Review Discussion w/independent historian: Patient and Significant other Radiography Diagnostic Testing: Clinical Impression(s) from Imaging Studies Chest X-Ray 06/07/23 13:25 IMPRESSION: Hyperinflation. Prominence of the central pulmonary arteries. Electronically Signed: James Eldridge MD at 14:06 EDT , Thoracic Spine X-Ray 06/07/23 13:25 IMPRESSION: Multilevel disc space narrowing. No vertebral fracture is seen. Electronically Signed: James Eldridge MD at 14:07 EDT , Treatment and Re-Evaluation :: I have personally performed a face to face assessment of the patient and have reviewed the CONNIE Note. I performed a substantive portion of the visit including all aspects of the following. My mcqueen findings include: History is 63-year-old female reportedly fell out of bed last night. She notes pain on the right ribs and mid thoracic region of the back. She denies any bleeding or swelling/hematoma. No reported headache. Patient currently being treated for stage IV mantle cell lymphoma with Dr. Butt. She started a new medication yesterday which is not known to have reported sleep disorders. No history of sleepwalking. Family states that there was no furniture that seem disturbed when they saw found her. Exam is mildly tender to palpation posterior thoracic right ribs and in the midline. I do not appreciate any crepitance no subcutaneous air. Equal breath sounds bilaterally Medical Decison Making my independent interpretation of the chest x-ray and thoracic spine is no acute fracture noted. Radiology concurs. PA was able to discuss with primary care to get additional pain medications written for her as she is on long-term pain medicine. Patient is advised of the limitations of x-ray for rib fractures and the possible interval development of compression fracture not originally seen. Discharge Plan Triage Chief Complaint: Back Other Complaint: Fall Shortness of Breath ED Midlevel Provider: Sabrina Savage ED Provider: Brodie Hopper Dx/Rx/DC Orders Clinical Impression: Back contusion, Fall Instructions: ED Back Contusion Prescriptions: No Action oxycodone-acetaminophen 1 TABLET tablet 1 tab PO DAILY PRN (Reason: Pain Or Fever) trazodone 100 MG tablet 100 mg PO QHS promethazine 25 MG tablet 25 mg PO Q6H PRN PRN (Reason: Nausea) buspirone 7.5 MG tablet 10 mg PO BID Patient Comments: TAKE 1 TABLET BY MOUTH TWICE A DAY allopurinol 300 MG tablet 300 mg PO DAILY Patient Comments: TAKE 1 TABLET BY MOUTH EVERY DAY topiramate 100 MG tablet 100 mg PO BID duloxetine 60 MG capsule 60 mg PO DAILY ondansetron HCl 8 MG tablet 8 mg PO Q8H PRN PRN (Reason: Nausea) acyclovir 400 MG tablet 400 mg PO BID Patient Comments: TAKE 1 TABLET BY MOUTH TWICE A DAY omeprazole 40 MG capsule,delayed release(DR/EC) 40 mg PO DAILY aslnqilzzj-gspbpwy-oyrcpvdg 1 EACH capsule 1 ea PO Q8H PRN (Reason: Pain Or Fever) albuterol sulfate 18 GM HFA aerosol inhaler 2 puff IN Q4H Patient Comments: INHALE 2 PUFFS INSTRUCTED EVERY 4 HOURS NEEDED FOR WHEEZING/SHORTNESS OF BREATH. fluticasone propionate 16 GM spray,suspension 1 spray NARES DAILY PRN (Reason: Nasal Dryness) Patient Comments: SPRAY 1 SPRAY INTO EACH NOSTRIL EVERY DAY Primary Care Provider: Juany Bee Referrals: Juany Bee MD [Primary Care Provider] - Activity Restrictions/Additional Instructions: I recommend ice. I spoke with Dr. Bee who states she will send in a new Percocet prescription. Disposition Disposition: Home, Self Care Discharge Date/Time: 06/07/23 14:50
[2023-06-07] MEDS: Oxycodone/Apap 5/325 Tablet PO (13:20)
--- NOTE | 2023-06-07 13:25 | RAD_ITS ---
STUDY: X-RAY - THORACIC SPINE REASON FOR EXAM: Female, 63 years old. Fall TECHNIQUE: 3 view(s) of the thoracic spine were obtained. COMPARISON: None. FINDINGS: Normal kyphosis of the thoracic spine. There is no substantial scoliosis. There is demineralization of the thoracic spine with endplate spondylosis. There is multilevel disc space narrowing of the thoracic spine. The soft tissue structures are unremarkable. RAD/Thoracic Spine 3 Views IMPRESSION: Multilevel disc space narrowing. No vertebral fracture is seen. Electronically Signed: James Eldridge MD at 14:07 EDT ,
--- NOTE | 2023-06-07 13:25 | RAD_ITS ---
STUDY: X-RAY CHEST REASON FOR EXAM: Female, 63 years old. Fall TECHNIQUE: PA and lateral views of the chest. COMPARISON: None. FINDINGS: There is hyperinflation of the lungs consistent with chronic obstructive lung disease (COPD). There is no demonstrated pleural abnormality. Normal size heart. Normal mediastinum and jennifer. There is prominence of the pulmonary hilar arteries without peripheral pulmonary vascular congestion, suggesting pulmonary hypertension. There is atherosclerotic tortuosity of the aortic arch and descending thoracic aorta. There is demineralization of the osseous structures. Normal visualized ribs, clavicles, and shoulders. There is no demonstrated abnormality of the visualized soft tissue structures of the upper abdomen. RAD/Chest PA and Lateral IMPRESSION: Hyperinflation. Prominence of the central pulmonary arteries. Electronically Signed: James Eldridge MD at 14:06 EDT ,
[2023-06-07 14:49] VITALS: BP 116/78; PULSE 89; RESP 14; TEMP 36.1; O2SAT 97
== END 2023-06-07 14:50 | disposition home or self-care (01) ==
PROVIDERS: Emergency Provider Emergency Medicine; PCP Internal Medicine; Visit Provider Emergency Medicine
DX: S20.229A Contusion of unspecified back wall of thorax, initial encounter (principal); C83.10 Mantle cell lymphoma, unspecified site; F17.210 Nicotine dependence, cigarettes, uncomplicated; W06.XXXA Fall from bed, initial encounter
CPT/HCPCS: 71046; 72072; 99284